=== PATIENT | female | born 1990 | race Hispanic/Latino ===

== ENCOUNTER → 2025-03-18 13:02 | Outpatient (REF) | payer OTHER, SELFPAY | LOC: RAD 13:02 | PROVIDERS: ATTENDING PHYSICIAN Obstetrics & Gynecology; FAMILY PHYSICIAN Physician Assistant Medical | DX: O26.859 Spotting complicating pregnancy, unspecified trimester (principal) | CPT/HCPCS: 76801; 76817 ==

== ENCOUNTER → 2025-03-21 14:26 | Outpatient (REF) | payer OTHER, SELFPAY | LOC: PNTC 14:26 | PROVIDERS: ATTENDING PHYSICIAN Obstetrics & Gynecology | DX: Q04.2 Holoprosencephaly (principal) | CPT/HCPCS: 76815; 76817 ==